=== PATIENT | male | born 1955 | race Caucasian/White ===

== ENCOUNTER 2018-03-21 10:15 | Outpatient (CLI) | payer OTHER ==
--- NOTE | 2018-03-21 15:29 | XRAY Report ---
Reason: BACK PAIN X MONTHS, L HEEL PAIN Procedure Date: 03/21/2018 Accession Number: [id number] / [id number] Procedure: XR - Lumbar Spine 2 View CPT Code: FULL RESULT: EXAM: LUMBOSACRAL SPINE RADIOGRAPHY EXAM DATE: 03/21/2018 11:11 AM. CLINICAL HISTORY: Back pain x months, left heel pain. COMPARISONS: None. TECHNIQUE: 3 views. FINDINGS: Alignment: There is levoconvex lumbar scoliosis centered about L2. There is no listhesis. Bones: Five sdn-kch-layjjny lumbar vertebral bodies are present. No fractures or bone lesions. Disks: Mild multilevel loss of disk space height with marginal osteophytosis most pronounced at the apex of scoliosis. Facets: No degenerative changes. Sacroiliac Joints: Unremarkable. Soft Tissues: Normal. The visualized bowel gas pattern is normal. IMPRESSION: Levoconvex scoliosis with associated degenerative changes. RADIA
--- NOTE | 2018-03-21 15:29 | XRAY Report ---
Reason: LT HEEL PAIN Procedure Date: 03/21/2018 Accession Number: [id number] / [id number] Procedure: XR - Calcaneus LT CPT Code: FULL RESULT: EXAM: LEFT CALCANEOUS RADIOGRAPHY EXAM DATE: 03/21/2018 11:11 AM. CLINICAL HISTORY: Left heel pain. COMPARISON: None. TECHNIQUE: 2 views. FINDINGS: Bones: Normal. No fractures or bone lesions. Joints: Normal. Soft Tissues: Normal. No soft tissue swelling. IMPRESSION: Normal study. RADIA
== END 2018-03-21 23:59 ==
LOC: DI 10:15
PROVIDERS: ATTEND Nurse Practitioner Family
DX: M79.672 Pain in left foot (principal); M51.36 Other intervertebral disc degeneration, lumbar region; M41.56 Other secondary scoliosis, lumbar region
CPT/HCPCS: 72100

== ENCOUNTER 2018-10-04 13:35 | Outpatient (CLI) | payer BC ==
--- NOTE | 2018-10-04 15:17 | XRAY Report ---
Reason: COUGH Procedure Date: 10/04/2018 Accession Number: [id number] / [id number] Procedure: XR - Chest 2 View X-Ray CPT Code: 30663 FULL RESULT: EXAM: CHEST RADIOGRAPHY EXAM DATE: 10/04/2018 02:27 PM. CLINICAL HISTORY: Cough. COMPARISON: CHEST 2 VIEW PA/LAT 09/28/2014 3:59 PM. TECHNIQUE: 2 views. FINDINGS: Lungs/Pleura: No focal opacities evident. No pleural effusion. No pneumothorax. Normal volumes. Mediastinum: Cardiomediastinal contour is stable with unchanged calcification of the aortic arch. Other: None. IMPRESSION: No acute cardiopulmonary abnormality. [facility]
== END 2018-10-04 13:36 | disposition home or self-care (01) ==
LOC: DI 13:35
PROVIDERS: ATTEND Nurse Practitioner Family
DX: R05 Cough (principal)
CPT/HCPCS: 71046

== ENCOUNTER 2019-03-28 13:49 | Outpatient (CLI) | payer BC ==
--- NOTE | 2019-03-28 16:11 | XRAY Report ---
Reason: PAIN IN LEFT FOOT Procedure Date: 03/28/2019 Accession Number: [id number] / [id number] Procedure: XR - Foot 3 View LT CPT Code: FULL RESULT: EXAM: LEFT FOOT RADIOGRAPHY EXAM DATE: 03/28/2019 02:16 PM. CLINICAL HISTORY: Pain in left foot. COMPARISON: XR FOOT COMPLETE MIN 3 VIEWS 09/02/2007 9:06 AM. TECHNIQUE: 3 views. FINDINGS: Bones: Normal. No fractures or bone lesions. Joints: Normal. No subluxations. Soft Tissues: Normal. No soft tissue swelling. IMPRESSION: No significant spurring is detected. RADIA
== END 2019-03-28 13:50 | disposition home or self-care (01) ==
LOC: DI 13:49
PROVIDERS: ATTEND Nurse Practitioner Family
DX: M79.672 Pain in left foot (principal)

== ENCOUNTER 2020-03-11 15:24 | Outpatient (CLI) | payer OTHER, MEDICARE | END 2020-03-11 15:25 | disposition home or self-care (01) | LOC: COV 15:24 | PROVIDERS: ATTEND Family Medicine | DX: R05 Cough (principal); M79.10 Myalgia, unspecified site; R53.83 Other fatigue; J02.9 Acute pharyngitis, unspecified; R19.7 Diarrhea, unspecified; R09.81 Nasal congestion; Z20.828 Contact with and (suspected) exposure to other viral communicable diseases ==

== ENCOUNTER 2022-06-13 11:23 | Outpatient (CLI) | payer MEDICARE, OTHER ==
--- NOTE | 2022-06-13 20:24 | Ultrasound Report ---
PROCEDURE: Aorta Screening INDICATIONS: HIST OF SMOKING. Screening for abdominal aortic aneurysm. TECHNIQUE: Real time scanning was performed of the aorta and iliac arteries, with image documentatio n. COMPARISON: None FINDINGS: Aorta: Proximal aortic diameter measures 2.5 x 2.6 cm. Mid-aorta measures 2.3 x 2.4 cm. Distal aor tic diameter is 2.1 x 2.2 cm. Iliac arteries: Right common iliac artery measures 1.2 x 1.1 cm. Left common iliac artery measures 1.3 x 1.2 cm. IMPRESSION: No abdominal aortic aneurysm visualized. Reviewed by: Mynor Martinez MD on 06/13/2022 8:23 PM PST Approved by: Mynor Martinez MD on 06/13/2022 8:23 PM PST Station ID: [id number]
== END 2022-06-13 11:24 | disposition home or self-care (01) ==
LOC: DI 11:23
PROVIDERS: ATTEND Nurse Practitioner Family
DX: Z13.6 Encounter for screening for cardiovascular disorders (principal); Z87.891 Personal history of nicotine dependence

== ENCOUNTER 2023-09-10 07:32 | Outpatient (CLI) | payer MEDICARE ==
[2023-09-10 14:28] LABS: BASOPHILS % (AUTO) 0.8 %; EOSINOPHILS # (AUTO) 0.2 10^3/uL (0.0-0.7); HCT - HEMATOCRIT 45.1 % (42.0-52.0); HGB - HEMOGLOBIN 14.7 g/dL (14.0-18.0); LYMPHOCYTES # (AUTO) 1.4 10^3/uL (1.5-3.5); MEAN CORPUSCULAR HEMOGLOBIN 30.1 pg (27.0-31.0); MEAN CORPUSCULAR HGB CONC 32.6 g/dL (32.0-36.0); MEAN CORPUSCULAR VOLUME 92.4 fL (80.0-94.0); MEAN PLATELET VOLUME 10.4 fL (7.4-11.4); MONOCYTES # (AUTO) 0.5 10^3/uL (0.0-1.0); MONOCYTES % (AUTO) 9.4 %; NEUTROPHILS # (AUTO) 2.7 10^3/uL (1.5-6.6); NEUTROPHILS % (AUTO) 56.4 %; PLT - PLATELET COUNT 191 10^3/uL (130-450); RED BLOOD COUNT 4.88 10^6/uL (4.70-6.10); RED CELL DISTRIBUTION WIDTH 13.7 % (12.0-15.0); WHITE BLOOD COUNT 4.8 x10^3/uL (4.8-10.8)
[2023-09-10 15:02] LABS: ALBUMIN/GLOBULIN RATIO 1.8 (1.0-2.2); ALKALINE PHOSPHATASE 66 IU/L (42-121); ALT ALANINE AMINOTRANSFERASE 21 IU/L (10-60); AST ASPARTATE AMINOTRANSFERASE 21 IU/L (10-42); BILIRUBIN,TOTAL 0.8 mg/dL (0.2-1.0); BUN - BLOOD UREA NITROGEN 20 mg/dL (6-20); CALCIUM 9.4 mg/dL (8.5-10.3); CARBON DIOXIDE - CO2 31 mmol/L (21-32); CHLORIDE 104 mmol/L (101-111); CHOL/HDL RATIO 2.9 (<5.0); CHOLESTEROL 157 mg/dL; GFR - MDRD 74 (>89); GLUCOSE 86 mg/dL (74-104); HDL CHOLESTEROL 54 mg/dL; LDL CHOLESTEROL,CALCULATED 83 mg/dL; LDL/HDL RATIO 1.5 (<3.6); POTASSIUM 4.5 mmol/L (3.5-4.5); SODIUM 137 mmol/L (135-145); TOTAL PROTEIN 6.2 g/dL (6.4-8.9); TRIGLYCERIDES 102 mg/dL (48-352); VLDL CHOLESTEROL 20 mg/dL
[2023-09-10 20:52] LABS: ESTIMATED AVERAGE GLUCOSE 108 mg/dL (70-100); HEMOGLOBIN A1c% 5.4 % (4.27-6.07)
== END 2023-09-10 07:33 | disposition home or self-care (01) ==
LOC: LAB.S 07:32
PROVIDERS: ATTEND Physician Assistant Medical
DX: Z13.9 Encounter for screening, unspecified (principal)
CPT/HCPCS: 36415; 80053; 80061; 83036; 83721; 84153; 85025

== ENCOUNTER 2023-09-18 08:43 | Outpatient (CLI) | payer MEDICARE ==
[2023-09-18] MEDS ORDERED: iohexoL-300 100 ML VIAL ONE (08:46)
[2023-09-18] MEDS: iohexoL-300 100 ML VIAL IVP ONE (09:28)
--- NOTE | 2023-09-18 10:46 | CT Report ---
PROCEDURE: Soft Tissue Neck W INDICATIONS: SOFT TISSUE MASS, NECK PAIN CONTRAST: OMNI 300 100ML TECHNIQUE: After the administration of intravenous contrast, 3.0 mm axial sections acquired from the sella to th e aortic arch. Additional oblique axial 3.0 mm sections acquired through the pharynx. 3 mm thick co maria guadalupe reformats were generated. For radiation dose reduction, the following was used: automated exp osure control, adjustment of mA and/or kV according to patient size. COMPARISON: None. FINDINGS: Image quality: Excellent. Lymph nodes: No enlarged lymph nodes seen throughout the neck. Vessels: Visualized vasculature appears patent. Neck spaces: The oropharynx, nasopharynx, and pharynx demonstrate no mucosal lesions. The vocal cor ds, false vocal cords, pyriform sinuses, epiglottis, vallecula, and tongue base all appear normal. E xtramucosal spaces appear unremarkable. Glands: The parotid and submandibular glands appear normal. The thyroid is normal in size and there are no incidental findings. Miscellaneous: Visualized brain and orbits appear normal. Lung apices appear clear. Superficial so ft tissues appear normal. Bones: No suspicious bony lesions. Mild mucosal thickening left maxillary sinus with a small mucous retention cyst. Visualized sinuses and mastoids otherwise appear unremarkable. Degenerative changes of the spine, most pronounced at C5-C6 and C6-C7. IMPRESSION: No masses or abnormalities are seen within the area of concern. No abnormal cervical lymph nodes. Reviewed by: Paul Garcia MD on 09/18/2023 10:45 AM PDT Approved by: Paul Garcia MD on 09/18/2023 10:45 AM PDT Station ID: [id number]
== END 2023-09-18 08:44 | disposition home or self-care (01) ==
LOC: DI 08:43
PROVIDERS: ATTEND Physician Assistant Medical
DX: M54.2 Cervicalgia (principal)
CPT/HCPCS: 70491; Q9967